=== PATIENT | male | born 1940 | race Caucasian/White ===

== ENCOUNTER → 2018-10-14 16:56 | Outpatient (CLI) | payer SELFPAY | PROVIDERS: Referring Provider Urology; Visit Provider Urology | DX: R30.0 Dysuria (principal); R82.90 Unspecified abnormal findings in urine | CPT/HCPCS: 87077; 87086; 87088; 87186 ==

== ENCOUNTER 2019-09-23 08:38 | Outpatient (CLI) | payer SELFPAY, OTHER ==
--- NOTE | 2019-09-09 03:30 | HP_ITS ---
HPI HPI History of Present Illness Surgical H&P: Yes Details: Patient is an 79-year-old dailey, referred to us for worsening dyspnea on exertion and anginal-like chest pain. He underwent a 2D echo with Doppler at [facility] on 09/08/2019 which showed mild concentric LVH, LVEF of 30 to 35%, moderate left atrial enlargement, moderate mitral regurgitation, severely calcified aorta with severe aortic stenosis and trivial aortic insufficiency. Estimated RVSP of 44mmHg. Peak and mean gradient across the aortic valve was 73/50 mmHg respectively given an estimated aortic valve area of 0.66 cm?. Previous to this the patient had an echocardiogram on 11/28/2018 which showed an EF of 50%, and a peak/mean gradient of 60/37 mmHg given an estimated aortic valve area of 0.8 cm? and RVSP of 15 mmHg. Patient has never had a cardiac catheterization. Patient was referred for evaluation of aortic valve replacement and/or mitral regurgitation repair. EKG dated 09/09/2019 shows normal sinus rhythm, normal axis, right bundle branch block, PVC, no evidence of previous myocardial infarction. In addition the patient has a history of prostate cancer with his most recent PSA dated 03/05/2019 of 33.6. 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 He has no associated exertional anginal symptoms. He denies any lower extremity edema. 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 He does have a younger brother who has coronary disease and has had bypass surgery and stents. In our office today his blood pressure is 120/60, and pulse is 76 and regular. Physical exam demonstrates a 3/6 systolic high-pitched ejection murmur best over the upper right sternal border, no diastolic murmurs are noted. Lipids are pending. Intake Vital Signs 09/09/19 Height 5 ft 9 in 09/09/19 Weight: 153 lb 09/09/19 BMI 22.6 09/09/19 BP 120/60 09/09/19 Blood Pressure Location Lt brachial 09/09/19 Position Sitting 09/09/19 Respiration 20 H 09/09/19 Pulse 76 09/09/19 Pulse Source Auscultation Intake Visit Reasons: SOB, CHF [facility] Allergies No Known Allergies Allergy (Verified 09/09/19 15:00) Medications hydrochlorothiazide 25 mg tablet 25 mg PO DAILY 09/03/19 [History Confirmed 09/03/19] tamsulosin 0.4 mg capsule 0.4 mg PO DAILY 09/03/19 [History Confirmed 09/03/19] alprazolam 0.25 mg disintegrating tablet 0.25 mg PO DAILY PRN 09/09/19 [History] aspirin 81 mg tablet,delayed release 81 mg PO DAILY #90 tab 09/09/19 [Rx Confirmed 09/09/19] clopidogrel 75 mg tablet 75 mg PO DAILY #30 tab 09/09/19 [Rx Confirmed 09/09/19] furosemide 40 mg tablet 40 mg PO DAILY 09/09/19 [History Confirmed 09/03/19] [facility] Medical History Pleural effusion on left (Chronic) Shortness of breath (Chronic) Severe aortic stenosis (Acute) Right bundle branch block (Chronic) Premature complex, ventricular (Chronic) Nonrheumatic tricuspid valve regurgitation (Acute) Nonrheumatic mitral valve regurgitation (Acute) Aortic calcification (Chronic) Left ventricular hypertrophy (Acute) Diastolic dysfunction (Acute) Essential hypertension (Chronic) Former smoker (Chronic) History of prostate cancer (Chronic) Social History (Updated 09/09/19 @ 15:[address] Kurtis Enamorado MD) Smoking Status: Former smoker quit date: 07/16/1967 ROS Const Const: Negative for fatigue, weakness, body ache, fever(s), headache(s), chills, frequent falls, night sweats, daytime sleepiness, difficulty sleeping, excessive sweating, weight gain, weight loss, increased appetite, poor appetite, anorexia or other Eyes Eyes: Negative for blind spots, loss of peripheral vision, transient loss of vision, blurry vision, change in vision, double vision, floaters, tunnel vision or other ENT ENT: Negative for headache(s), dizziness, hearing loss, tinnitus, Nosebleed/epistaxis, balance problems, post nasal drip, lip swelling, tongue swelling, bleeding gums, hoarseness, neck pain, dry mouth or other Cardio Chest Pain: No Resp Respiratory: Negative for SOB with activity, SOB at rest, SOB orthopnea\SOB lying down, Coughing up blood/hemoptysis, chest congestion, pain on inspiration, snoring, stridor, wheezing, crackles, paroxysmal nocturnal dyspnea or other GI GI: Negative nausea, vomiting, heartburn, constipation, belching, bloating, cramping, vomiting blood/hematemesis, bright, red blood in stools, black,tarry stools, loose stools, Difficulty Swallowing or other : Negative for hematuria, frequent nighttime urination/ nocturia, erectile dysfunction or abnormal vaginal bleeding Musc Musc: Negative for muscle aches/ myalgia, muscle weakness, joint pain or balance problems Skin Skin: Negative redness, non-healing lesions, rash, unusual bruising, skin ulcer, wounds, jaundice or other Neuro Neuro: Negative for dizziness, lightheadedness, near syncope, syncope, orthostatic symptoms, frequent falls, headache(s), weakness, confusion, memory loss, restless legs, blurry vision, double vision, vertigo, seizures, lack of coordination or other Denzel Hematologic/Lymphatic: Negative for easy bleeding, easy bruising, enlarged lymph nodes or other Endo Endo: Negative for fatigue, cold intolerance, heat intolerance, excessive sweating, flushing, increased thirst/drinking, increased hunger, hair loss, hair growth or other Psych Psych: Negative for anxiety, depression, thoughts of harming anyone, thoughts of harming yourself, visual hallucinations, panic attacks or audible hallucinations Allergy Allergy/Immunology: Negative for throat swelling, Negative for tongue swelling, Negative for hives, Negative for rash, Negative for lip swelling Cardiology Exam Const Appearance: cooperative, healthy appearing and no acute distress Nutritional Appearance: well nourished Orientation: alert, oriented x3 and oriented to person Head Head: normal to inspection, normocephalic and atraumatic Nose: external nose normal Face and Sinus: face symmetric Mouth: oral mucosae normal Eyes General: appearance normal, both eyes and all related structures Eyelids: eyelids normal Conjunctivae: conjunctivae normal Pupils: PERRL and normal by confrontation EOM: EOM intact bilaterally Neck Neck: normal visual inspection and full ROM Carotids: normal carotid upstroke Chest Chest inspection: normal inspection of the chest Auscultation: Bilateral: Clear to Auscultation Cardio Palpation: normal PMI Rate: regular rate Rhythm: regular rhythm Heart sounds: S2 normal Murmur: Grade 2/6, high pitched and crescendo-decrescendo GI GI: normal to inspection, no hepatosplenomegaly and bowel sounds present Neuro General: alert, awake, oriented x3, CN's II-XI intact bilaterally and moves all extremities Skin Skin: no rashes or lesions noted Extremities Pulses: Normal: Right Femoral Pulse, Left Femoral Pulse, Right Dorsalis Pedis Pulse, Left Dorsalis Pedis Pulse, Right Posterior Tibial Pulse, Left Posterior Tibial Pulse, Right Radial Pulse, Left Radial Pulse Lower Extremity Edema: None: Bilateral Psych Psychological: normal affect Assessment & Plan 1. Severe aortic stenosis I35.0 Per echo done 11/13/2018 @ [facility] Plan 1. Severe aortic stenosis: The patient has critical aortic stenosis with an estimated aortic valve area of less than 1 cm? with a peak/mean gradient of 73/50 mmHg superimposed on deteriorating LV function and worsening RVSP. I believe the patient requires at the very least aortic valve replacement either by open resection or TAVR, as well as the possibility of mitral valve repair. I recommended the patient undergo a transesophageal echocardiogram to evaluate his aortic valve, LV function, and mitral regurgitation. At the conclusion of this he will undergo a left and right heart catheterization to determine if he has any concomitant coronary occlusive disease and to get an accurate designation of his pulmonary pressures. If the patient is a surgical candidate he will require bilateral carotid ultrasounds prior to his procedure. There is/benefits of the procedure were thoroughly explained the patient and his son, including specific attention to lack of onsite surgical backup, and the patient is agreed to proceed. In addition he will undergo fasting lipid profile to complete his cardiac picture. I advised the patient not to do any work until we have fully evaluated his aortic valve. The patient may proceed with hormone injections for his diagnosis of his prostate cancer prior to his aortic valve replacement. 2. Thank you very much for the opportunity to participate in the cardiac care of your patient. 3. Patient will return in 4 months time. This note was generated using a voice recognition system and there may be incorrect words, spelling or punctuation that were not noted when reviewing the office note prior to saving. Orders Orders: Left & Right Heart Cath Today Liver Profile 09/03/19 Echo Transesophageal (MORIS) Today Plan Detail Other Orders Orders: 12 Lead EKG performed by B[facility] Today I45.10, I49.3, R06.02 Left & Right Heart Cath Today I10, I34.0, I36.1, I45.10, I49.3, I51.7, I51.89, I70.0, J90, R06.02 Lipid Profile 09/03/19 I70.0 Liver Profile 09/03/19 Z85.46 Echo Transesophageal ([facility]) Today I34.0, R06.02 Other Medications New: aspirin (Adult Aspirin Regimen) 81 mg PO DAILY 90 tabs 3RF clopidogrel (Plavix) 75 mg PO DAILY 30 tabs 3RF Follow Up +4M (Fei or ZEV) Coding Level of Care Code Off vis,new,level 4 Diagnoses Severe aortic stenosis I35.0 Coding Level of Care Code Off vis,new,level 4 Diagnoses Severe aortic stenosis I35.0 Supplemental Info Supplemental Information Diagnostics Electrocardiogram 09/09/19 09/09/19 6250 <Electronically signed by Kurtis Enamorado MD> Date _ Kurtis Enamorado MD
[2019-09-09 14:59] VITALS: BMI 22.6
--- NOTE | 2019-09-09 16:40 | RAD_ITS ---
STUDY: X-RAY CHEST REASON FOR EXAM: Male, 79 years old. HAVING A HEART CATH TECHNIQUE: PA and lateral views of the chest. COMPARISON: None. FINDINGS: There is hyperinflation of the lungs consistent with chronic obstructive lung disease (COPD). Linear scar in the left upper lobe. Small bilateral pleural effusions. Normal size heart. Normal mediastinum and arron. Normal visualized pulmonary arteries. Normal visualized aortic arch and descending thoracic aorta. There is a dextroscoliosis of the thoracic spine. Normal visualized ribs, clavicles, and shoulders. There is no demonstrated abnormality of the visualized soft tissue structures of the upper abdomen. RAD/Chest PA and Lateral IMPRESSION: Emphysema with left upper lobe scarring and small bilateral pleural effusions. Electronically Signed: Noah Roberson MD at 17:10 EST Tel , Service support ,
[2019-09-09 17:09] LABS: Hematocrit 45.7 % (40-54); Hemoglobin 14.9 g/dL (13.0-16.5); Mean Corp Hgb Conc 32.6 g/dL (32-36); Mean Corpuscular Hgb 29.4 pg (27.0-32.0); Mean Corpuscular Volume 90.3 fL (80-94); Mean Platelet Vol. 11.1 fl (6.2-12.0); Platelet Count 144 K/mm3 (150-450); RBC Distribution Width SD 42.5 fl (35.1-43.9); Red Blood Count 5.06 M/mm3 (4.6-6.2); White Blood Count 8.8 K/mm3 (4.4-11.0)
[2019-09-09 17:17] LABS: International Normalized Ratio 1.1; Prothrombin Time (Protime)PT. 13.5 SECONDS (11.7-14.9)
[2019-09-09 17:18] LABS: Partial Thromboplast Time 28.1 Seconds (24.1-36.2)
[2019-09-09 17:54] LABS: AST(SGOT) 25 U/L (15-37); Alanine Aminotransfer ALT/SGPT 33 U/L (16-61); Albumin, Serum 3.6 g/dL (3.2-5.0); Alkaline Phosphatase 161 U/L (45-117); Anion Gap 5 (5-15); BUN 29 mg/dL (7-18); BUN/Creat Ratio 24.8 RATIO (10-20); Bilirubin, Direct 0.21 mg/dL (0.00-0.30); Calcium,Total 8.9 mg/dL (8.5-10.1); Chloride 103 mmol/L (98-107); Creatinine, Serum 1.17 mg/dL (0.70-1.30); EST Glomerular Filtration Rate 64 mL/min (>60); Est Glom Filt Rate - Afr Amer 77 mL/min (>60); Globulin 4.4 g/dL (2.2-4.2); Glucose 102 mg/dL (74-106); Potassium 3.6 mmol/L (3.5-5.1); Sodium Level 139 mmol/L (136-145)
[2019-09-22 09:49] VITALS: BMI 22.6
--- NOTE | 2019-09-23 08:58 | ECHOTEE_ITS ---
Reason For Study: Valve replacement eval Medication MORIS probe 6VT-D (SN [id number]) passed with minimal difficulty. No complications were noted. [id number] gargled and swallowed. Cetacaine Topical Ch[place]is given X2 orally. Versed 2 mg given slow IVP. Fentanyl 25 mcg given slow IVP. Performed a rapid injection of agitated mix of 9 cc saline and 1cc air to assess for atrial septal defect. Left Ventricle Severely dilated left ventricle. The estimated ejection fraction is 20-25 %. There is severe global hypokinesis of the left ventricle. Right Ventricle Moderately dilated right ventricle. The right ventricular wall motion is normal. Atria Normal atrial septum. Bubble contrast study negative for right to left interatrial shunt. The left atrium is moderately enlarged. No thrombus is detected in the left atrial appendage. Normal right atrium. Mitral Valve The mitral valve is structurally normal. No prolapse or stenosis seen. Tricuspid Valve Normal tricuspid valve. Unable to estimate RV systolic pressure due to insufficient tricuspid regurgitant envelope. Aortic Valve Trisinus/trileaflet aortic valve. Severe focal aortic valve thickening. Severe focal aortic valve calcification. Severe restriction of the aortic valve. Severe aortic stenosis. Peak aortic valve gradient 73 mmHg. Trivial aortic valve insufficiency. Pulmonic Valve Normal pulmonic valve. Vessels Normal aortic root. Normal arch. The pulmonary artery is normal size. Normal pulmonary veins. Interpretation Summary Severely dilated left ventricle. The estimated ejection fraction is 20-25 %. There is severe global hypokinesis of the left ventricle. Moderately dilated right ventricle. Bubble contrast study negative for right to left interatrial shunt. The left atrium is moderately enlarged. No thrombus is detected in the left atrial appendage. Unable to estimate RV systolic pressure due to insufficient tricuspid regurgitant envelope. Trivial aortic valve insufficiency. Severe aortic stenosis. Peak aortic valve gradient 73 mmHg. Severe restriction of the aortic valve. Ordering Physician: Kurtis Enamorado Referring Physician: Keyla Pradhan Performed By: Jeff Wise RCS
--- NOTE | 2019-09-23 09:55 | PCM.HP.BLA ---
Problem List (1) Severe aortic stenosis Status: Acute Comment: Per echo done 11/13/2018 @ [facility] (2) Aortic calcification Status: Chronic Comment: per echo 11/28/18 done @ [facility] (3) Essential hypertension Status: Chronic History and Physical Date of Admission: 09/23/19 [facility] Medical Records Department [address] [place] [address] History and Physical 09/09/19 0330 MR#: [id number] Acct: [id number] Name: OLIVIA GEORGES Rep #: [id number] : 1940 79 From: Kurtis Enamorado MD PCP: Keyla Pradhan MD Status: PRE CLI Location: [facility] HPI HPI History of Present Illness Surgical H&P: Yes Details: Patient is an 79-year-old dailey, referred to us for worsening dyspnea on exertion and anginal-like chest pain. He underwent a 2D echo with Doppler at [facility] on 09/08/2019 which showed mild concentric LVH, LVEF of 30 to 35%, moderate left atrial enlargement, moderate mitral regurgitation, severely calcified aorta with severe aortic stenosis and trivial aortic insufficiency. Estimated RVSP of 44mmHg. Peak and mean gradient across the aortic valve was 73/50 mmHg respectively given an estimated aortic valve area of 0.66 cm?. Previous to this the patient had an echocardiogram on 11/28/2018 which showed an EF of 50%, and a peak/mean gradient of 60/37 mmHg given an estimated aortic valve area of 0.8 cm? and RVSP of 15 mmHg. Patient has never had a cardiac catheterization. Patient was referred for evaluation of aortic valve replacement and/or mitral regurgitation repair. EKG dated 09/09/2019 shows normal sinus rhythm, normal axis, right bundle branch block, PVC, no evidence of previous myocardial infarction. In addition the patient has a history of prostate cancer with his most recent PSA dated 03/05/2019 of 33.6. 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 He has no associated exertional anginal symptoms. He denies any lower extremity edema. 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 He does have a younger brother who has coronary disease and has had bypass surgery and stents. In our office today his blood pressure is 120/60, and pulse is 76 and regular. Physical exam demonstrates a 3/6 systolic high-pitched ejection murmur best over the upper right sternal border, no diastolic murmurs are noted. Lipids are pending. Intake Vital Signs 09/09/19 Height 5 ft 9 in 09/09/19 Weight: 153 lb 09/09/19 BMI 22.6 09/09/19 BP 120/60 09/09/19 Blood Pressure Location Lt brachial 09/09/19 Position Sitting 09/09/19 Respiration 20 H 09/09/19 Pulse 76 09/09/19 Pulse Source Auscultation Intake Visit Reasons: SOB, CHF (DR RONAN CHURCHILL - [facility]) Allergies No Known Allergies Allergy (Verified 09/09/19 15:00) Medications hydrochlorothiazide 25 mg tablet 25 mg PO DAILY 09/03/19 [History Confirmed 09/03/19] tamsulosin 0.4 mg capsule 0.4 mg PO DAILY 09/03/19 [History Confirmed 09/03/19] alprazolam 0.25 mg disintegrating tablet 0.25 mg PO DAILY PRN 09/09/19 [History] aspirin 81 mg tablet,delayed release 81 mg PO DAILY #90 tab 09/09/19 [Rx Confirmed 09/09/19] clopidogrel 75 mg tablet 75 mg PO DAILY #30 tab 09/09/19 [Rx Confirmed 09/09/19] furosemide 40 mg tablet 40 mg PO DAILY 09/09/19 [History Confirmed 09/03/19] [facility] Medical History Pleural effusion on left (Chronic) Shortness of breath (Chronic) Severe aortic stenosis (Acute) Right bundle branch block (Chronic) Premature complex, ventricular (Chronic) Nonrheumatic tricuspid valve regurgitation (Acute) Nonrheumatic mitral valve regurgitation (Acute) Aortic calcification (Chronic) Left ventricular hypertrophy (Acute) Diastolic dysfunction (Acute) Essential hypertension (Chronic) Former smoker (Chronic) History of prostate cancer (Chronic) Social History (Updated 09/09/19 @ 15:[address] Kurtis Enamorado MD) Smoking Status: Former smoker quit date: 07/16/1967 ROS Const Const: Negative for fatigue, weakness, body ache, fever(s), headache(s), chills, frequent falls, night sweats, daytime sleepiness, difficulty sleeping, excessive sweating, weight gain, weight loss, increased appetite, poor appetite, anorexia or other Eyes Eyes: Negative for blind spots, loss of peripheral vision, transient loss of vision, blurry vision, change in vision, double vision, floaters, tunnel vision or other ENT ENT: Negative for headache(s), dizziness, hearing loss, tinnitus, Nosebleed/epistaxis, balance problems, post nasal drip, lip swelling, tongue swelling, bleeding gums, hoarseness, neck pain, dry mouth or other Cardio Chest Pain: No Resp Respiratory: Negative for SOB with activity, SOB at rest, SOB orthopnea\SOB lying down, Coughing up blood/hemoptysis, chest congestion, pain on inspiration, snoring, stridor, wheezing, crackles, paroxysmal nocturnal dyspnea or other GI GI: Negative nausea, vomiting, heartburn, constipation, belching, bloating, cramping, vomiting blood/hematemesis, bright, red blood in stools, black,tarry stools, loose stools, Difficulty Swallowing or other : Negative for hematuria, frequent nighttime urination/ nocturia, erectile dysfunction or abnormal vaginal bleeding Musc Musc: Negative for muscle aches/ myalgia, muscle weakness, joint pain or balance problems Skin Skin: Negative redness, non-healing lesions, rash, unusual bruising, skin ulcer, wounds, jaundice or other Neuro Neuro: Negative for dizziness, lightheadedness, near syncope, syncope, orthostatic symptoms, frequent falls, headache(s), weakness, confusion, memory loss, restless legs, blurry vision, double vision, vertigo, seizures, lack of coordination or other Denzel Hematologic/Lymphatic: Negative for easy bleeding, easy bruising, enlarged lymph nodes or other Endo Endo: Negative for fatigue, cold intolerance, heat intolerance, excessive sweating, flushing, increased thirst/drinking, increased hunger, hair loss, hair growth or other Psych Psych: Negative for anxiety, depression, thoughts of harming anyone, thoughts of harming yourself, visual hallucinations, panic attacks or audible hallucinations Allergy Allergy/Immunology: Negative for throat swelling, Negative for tongue swelling, Negative for hives, Negative for rash, Negative for lip swelling Cardiology Exam Const Appearance: cooperative, healthy appearing and no acute distress Nutritional Appearance: well nourished Orientation: alert, oriented x3 and oriented to person Head Head: normal to inspection, normocephalic and atraumatic Nose: external nose normal Face and Sinus: face symmetric Mouth: oral mucosae normal Eyes General: appearance normal, both eyes and all related structures Eyelids: eyelids normal Conjunctivae: conjunctivae normal Pupils: PERRL and normal by confrontation EOM: EOM intact bilaterally Neck Neck: normal visual inspection and full ROM Carotids: normal carotid upstroke Chest Chest inspection: normal inspection of the chest Auscultation: Bilateral: Clear to Auscultation Cardio Palpation: normal PMI Rate: regular rate Rhythm: regular rhythm Heart sounds: S2 normal Murmur: Grade 2/6, high pitched and crescendo-decrescendo GI GI: normal to inspection, no hepatosplenomegaly and bowel sounds present Neuro General: alert, awake, oriented x3, CN's II-XI intact bilaterally and moves all extremities Skin Skin: no rashes or lesions noted Extremities Pulses: Normal: Right Femoral Pulse, Left Femoral Pulse, Right Dorsalis Pedis Pulse, Left Dorsalis Pedis Pulse, Right Posterior Tibial Pulse, Left Posterior Tibial Pulse, Right Radial Pulse, Left Radial Pulse Lower Extremity Edema: None: Bilateral Psych Psychological: normal affect Assessment & Plan 1. Severe aortic stenosis I35.0 Per echo done 11/13/2018 @ [facility] Plan 1. Severe aortic stenosis: The patient has critical aortic stenosis with an estimated aortic valve area of less than 1 cm? with a peak/mean gradient of 73/50 mmHg superimposed on deteriorating LV function and worsening RVSP. I believe the patient requires at the very least aortic valve replacement either by open resection or TAVR, as well as the possibility of mitral valve repair. I recommended the patient undergo a transesophageal echocardiogram to evaluate his aortic valve, LV function, and mitral regurgitation. At the conclusion of this he will undergo a left and right heart catheterization to determine if he has any concomitant coronary occlusive disease and to get an accurate designation of his pulmonary pressures. If the patient is a surgical candidate he will require bilateral carotid ultrasounds prior to his procedure. There is/benefits of the procedure were thoroughly explained the patient and his son, including specific attention to lack of onsite surgical backup, and the patient is agreed to proceed. In addition he will undergo fasting lipid profile to complete his cardiac picture. I advised the patient not to do any work until we have fully evaluated his aortic valve. The patient may proceed with hormone injections for his diagnosis of his prostate cancer prior to his aortic valve replacement. 2. Thank you very much for the opportunity to participate in the cardiac care of your patient. 3. Patient will return in 4 months time. This note was generated using a voice recognition system and there may be incorrect words, spelling or punctuation that were not noted when reviewing the office note prior to saving. Orders Orders: Left & Right Heart Cath Today Liver Profile 09/03/19 Echo Transesophageal ([facility]) Today Plan Detail Other Orders Orders: 12 Lead EKG performed by [facility] Today I45.10, I49.3, R06.02 Left & Right Heart Cath Today I10, I34.0, I36.1, I45.10, I49.3, I51.7, I51.89, I70.0, J90, R06.02 Lipid Profile 09/03/19 I70.0 Liver Profile 09/03/19 Z85.46 Echo Transesophageal ([facility]) Today I34.0, R06.02 Other Medications New: aspirin (Adult Aspirin Regimen) 81 mg PO DAILY 90 tabs 3RF clopidogrel (Plavix) 75 mg PO DAILY 30 tabs 3RF Follow Up +4M (Fei or ZEV) Coding Level of Care Code Off vis,new,level 4 Diagnoses Severe aortic stenosis I35.0 Coding Level of Care Code Off vis,new,level 4 Diagnoses Severe aortic stenosis I35.0 Supplemental Info Supplemental Information Diagnostics Electrocardiogram 09/09/19 09/09/19 5970 <Electronically signed by Kurtis Enamorado MD> Date Kurtis Enamorado MD Interventional cardiology addendum: The patient underwent transesophageal echocardiogram immediately prior to his left heart catheterization which demonstrated severe calcification and severe aortic stenosis, mild mitral regurgitation, trivial tricuspid regurgitation, dilated left ventricle with overall ejection fraction approximately 25 to 30%. The patient will now proceed with right and left heart catheterization to identify his coronary anatomy and measure his pulmonary pressures in anticipation of either TAVR or open aortic valvular replacement with concomitant bypass surgery. The risk/benefits of the cardiac catheterization procedure were thoroughly explained to the patient prior to his transesophageal echocardiogram, including specific attention to lack of onsite surgical backup, and informed consent was obtained. Left and right her catheterization to follow.
--- NOTE | 2019-09-23 11:09 | CL.D_ITS ---
Patient Name: OLIVIA GEORGES Study Date: 09/23/2019 Performing: Kurtis Enamorado MD Ht: 68.89 inches 175 cm : 1940 Wt: 152.12 lbs 69 kg Age: 79 Gender: male BSA: 1.84 PROCEDURE(S) PERFORMED RR46-DJN/LHC/COR/LV CLINICAL PROFILE AND INDICATIONS Indications: Suspected CAD, Valvular Disease, LV Dysfunction Heart Failure: NYHA Class: 2, Newly Diagnosed: No Stress/Imaging Stress/Image Study Performed: No Angina Classification Anginal Classification w/in 2 Weeks: Anginal Equivalent Dyspnea CAD Presentations: No Sxs, no angina. 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 Non obstructive coronary arteries Aortic Valve Stenosis- Severe The patient has pulmonary hypertension which is moderate. RECOMMENDATIONS Management as per referring Immunohematologist Surgery consult for coronary revascularization Surgery consult for Valve Replacement surgery DESCRIPTION OF PROCEDURE The patient arrived to the procedure lab. The risks and benefits of the procedure as well as a full d escription of our services here and current unavailability of surgical backup were fully explained to the patient and/or their significant other prior to the catheterization. The Timeout was completed, verifying the correct patient and procedure. The patient's procedural site was prepped and draped in the usual fashion. Local anesthetic was given subcutaneously to right groin region with Lidocaine 2%. Using a modified Seldinger technique, arterial access was obtained via the right femoral artery, a 4 Fr sheath was inserted Venous access was obtained via the left femoral vein, a 7Fr sheath was inserte d. A 7Fr thermal dilution catheter was inserted and right heart pressures were recorded, it was then advanced to PA position for cardiac outputs. O2 saturations were then obtained. Thermal dilution card iac outputs were then recorded. The Thermal dilution catheter was then removed. Left Ventriculography was performed in HARKINS projection using a 4 Fr. Pigtail catheter. LV to AO pullback pr essures were then recorded. Left Coronary Artery selective angiography was performed in multiple view s using a 4 Fr. JL5 catheter. Right Coronary Artery selective angiography was then performed in multi ple views using a 4 Fr. 3DRC catheter.The arterial sheath was left in to be pulled in the holding are a. The venous sheath was then left in to be pulled in the holding area. The arterial sheath was pulle d and manual compression applied until hemostasis is achieved.. The venous sheath was then pulled and manual compression applied until hemostasis achieved CORONARY ANGIOGRAPHY DOMINANCE: Right Dominant LEFT HEART ASSESSMENT Left Ventricular Ejection Fraction: by LV Gram 20-25 % Global Hypokinesis - Severe Depressed Left Ventricular systolic function LVEDP: 25 mmHg Elevated Left Ventricular End Diastolic Pressure RIGHT HEART ASSESSMENT Thermal CO: 4.96 Thermal CI: 2.7 Richard CO: 4.16 Richard CI: 2.26 PW: 16 PA: 45/17 29 RV: 45/-2 4 RA: 01/14 1 PVR: 210 SVR: 1097 Aortic Valve Area: 0.97 Aortic Valve Index: 0.53 Aortic Valve Mean Gradient: 38.9 Mitral Valve Area: 2.10 Mitral Valve index: 1.14 Mitral Valve Mean Gradient: 14.3 Right Heart pressures - elevated Pulmonary Hypertension Mild to Moderate LEFT MAIN: Angiographically normal LEFT ANTERIOR DESCENDING ARTERY: PROX LAD: Non-obstructive, Mild luminal irregularities less than 30% MID LAD: Moderate luminal irregularities up to 50%, Moderate calcification DIAGONAL 2: Proximal - 30 % Stenosis CIRCUMFLEX ARTERY: MID CIRC: 75 % Stenosis RIGHT CORONARY ARTERY: MID RCA: 75 % Stenosis, Mild calcification VALVE FINDINGS: Aortic Valve Stenosis - severe COMPLICATIONS No Complications PROCEDURE MEDICATIONS SUMMARY OF HEMODYNAMIC DATA Time AIR REST ECG 09:11:04 RA 01/14 (1) SV 10:22:20 RV 45/-2, 4 10:22:33 PA 45/17 (29) PA 10:26:45 PW (16) PV 10:26:58 LV 145/-2, 24 10:30:17 LV 151/-7, 15 10:30:23 LV 145/-2, 25 10:30:41 PW (24) 10:30:41 LV 147/-4, 23 10:30:48 PW (21) 10:30:48 LV 145/-1, 28 10:31:18 PA 48/1 (21) 10:31:18 LV 146/-1, 28 10:31:26 RV 50/1, 4 10:31:26 LV 141/-3, 23 10:31:54 RV 43/0, 5 10:31:54 LV 136/-2, 20 10:33:08 LVp 139/-6, 24 10:33:13 AOp 94/52 (71) 10:33:18 AO 84/57 (69) SA 10:35:35 Valve Area (c P-P/ms Time AIR REST Mitral 2.10 14.3 mn/218 ms 10:30:48 Aortic 0.97 38.9 mn/302 ms45.0 pk/302 ms 10:33:13 Type SV CO (l/m) CI (l/m/ HR Time AIR REST Thermal 72.90 4.96 2.70 68 09:11:04 Richard 61.20 4.16 2.26 68 09:11:04 Label % O2 Pres/Loc Time AIR REST AO 93 PV 10:39:21 PA 64 PA 10:39:26 Signed By Kurtis Enamorado MD On 09/23/2019 11:08:38 AM Kurtis Enamorado MD
[2019-09-23 12:26] LABS: Blood Gas Specimen Type VEN; VBG BASE EXCESS 3 mmol/L (-1.0-3.5); VBG Bicarbonate 27 mmol/L (22-26); VBG Oxygen Content 29 mmol/L (23-33); VBG PO2 32 mmHg (25-40); VBG SO2 64 % (50-70); VBG pCO2 40.1 mmHg (41-51); VBG pH 7.44 (7.32-7.42)
[2019-09-23 12:26] LABS: Blood Gas Specimen Type VEN; VBG BASE EXCESS 3 mmol/L (-1.0-3.5); VBG Bicarbonate 27 mmol/L (22-26); VBG Oxygen Content 28 mmol/L (23-33); VBG PO2 34 mmHg (25-40); VBG SO2 68 % (50-70); VBG pCO2 38.8 mmHg (41-51); VBG pH 7.45 (7.32-7.42)
[2019-09-23 12:26] LABS: Base Excess 2 mmol/L (-2 to +2); Bicarbonate 25.7 mmol/L (22-26); Blood Gas Specimen Type ART; PO2 62 mmHG (75-100); SO2 93 % (95-99); Total Carbon Dioxide 27 mmol/L; pCO2 35.2 mmHg (35-45); pH 7.47 (7.35-7.45)
== END 2019-09-23 15:26 | disposition home or self-care (01) ==
LOC: CVS 08:43
PROVIDERS: PCP Family Medicine; Referring Provider Internal Medicine Cardiovascular Disease; Visit Provider Internal Medicine Cardiovascular Disease
DX: I35.0 Nonrheumatic aortic (valve) stenosis (principal); I34.0 Nonrheumatic mitral (valve) insufficiency; I25.10 Atherosclerotic heart disease of native coronary artery without angina pectoris; R06.02 Shortness of breath; Z85.46 Personal history of malignant neoplasm of prostate
CPT/HCPCS: 36415; 71046; 80048; 80076; 82803; 85027; 85610; 85730; 93312; 93320; 93325; 93460; J7040; Q9967; A4216; C1751; C1769; C1894

== ENCOUNTER → 2020-01-29 09:46 | Outpatient (CLI) | payer OTHER, SELFPAY ==
[2019-09-22 09:49] VITALS: BMI 22.6
== END ==
PROVIDERS: PCP Family Medicine
DX: Z11.59 Encounter for screening for other viral diseases (principal)
CPT/HCPCS: 87635; G2023; U0003

== ENCOUNTER 2023-03-20 18:20 | Emergency (ER) | payer OTHER, SELFPAY ==
[2023-03-20 18:21] VITALS: BP 139/44; PULSE 60; RESP 18; TEMP 35.9; O2SAT 100
[2023-03-20 19:09] VITALS: BP 156/56; PULSE 46; RESP 14; BMI 24.0
--- NOTE | 2023-03-20 19:25 | RAD_ITS ---
INDICATION: weakness EXAMINATION/TECHNIQUE: X-RAY - XR Chest 1 View COMPARISON: 09/09/2019. FINDINGS: Chronic lung changes including linear scar in the left upper lobe.. No definite acute lung findings. Tortuous and calcified thoracic aorta. The heart is mildly enlarged. Aortic valve replacement. No pleural effusion or pneumothorax. Degenerative changes of the thoracic spine. RAD/Chest 1 View (Portable) IMPRESSION: No definite acute lung findings. Chronic lung changes. Electronically Signed: James Yancey MD at 20:03 EDT ,
[2023-03-20 19:34] LABS: Absolute Neutrophil Count 4.8 X10^3/uL (2.0-7.7); Basophil# 0.04 X10^3/uL; Basophil% 0.6 % (0-1); Eosinophil# 0.06 X10^3/uL; Eosinophils% 0.9 % (0-5); Hematocrit 35.5 % (40-54); Hemoglobin 11.1 g/dL (13.0-16.5); Lymphocyte % 19.3 % (19-41); Mean Corp Hgb Conc 31.3 g/dL (32-36); Mean Corpuscular Hgb 26.6 pg (27.0-32.0); Mean Corpuscular Volume 85.1 fL (80-94); Mean Platelet Vol. 10.1 fl (6.2-12.0); Monocyte# 0.49 X10^3/uL; Monocyte% 7.3 % (0-10); NRBC Flagged by Analyzer 0 % (0-5); Neutrophil % 71.5 % (47-70); Platelet Count 194 K/mm3 (150-450); RBC Distribution Width CV 15.5 % (11.6-14.6); RBC Distribution Width SD 47.8 fl (35.1-43.9); Red Blood Count 4.17 M/mm3 (4.6-6.2); White Blood Count 6.7 K/mm3 (4.4-11.0)
--- NOTE | 2023-03-20 19:53 | EX.ED.GENINJ ---
HPI History of Present Illness Chief Complaint: Weakness Narrative Narrative: 82-year-old male presenting with lightheadedness for the last week. States has been dizzy. He denies chest pain, palpitations, shortness of breath except for some dyspnea on exertion. He states he started to walk short distances and has trouble walking down to the well. He states is worse when he bends over. He has not any fevers or chills. No nausea or vomiting. No black or bloody stools noted. Patient states that he had an aortic valve replacement in 2019. He states he has not been following up with anybody for this. States he is on aspirin and Plavix. [facility] Medical History 2-vessel coronary artery disease Aortic calcification Atherosclerosis of coronary artery of [place] heart without angina pectoris Diastolic dysfunction Essential hypertension Former smoker History of prostate cancer Left ventricular hypertrophy Nonrheumatic mitral valve regurgitation Nonrheumatic tricuspid valve regurgitation Pleural effusion on left Premature complex, ventricular Right bundle branch block Severe aortic stenosis Shortness of breath Home Medications hydrochlorothiazide 25 mg tablet 25 mg PO DAILY Has not been taking: taking Lasix instead 09/03/19 [History Last Taken Unknown] tamsulosin 0.4 mg capsule 0.4 mg PO DAILY 09/03/19 [History Last Taken Unknown] alprazolam 0.25 mg disintegrating tablet 0.25 mg PO DAILY PRN Anxiety 09/09/19 [History Last Taken Unknown] aspirin 81 mg tablet,delayed release (Adult Aspirin Regimen) 81 mg PO DAILY #90 tabs 09/09/19 [Rx Last Taken 09/23/19] clopidogrel 75 mg tablet (Plavix) 75 mg PO DAILY #30 tabs 09/09/19 [Rx Last Taken 09/23/19] furosemide 40 mg tablet 40 mg PO DAILY 09/09/19 [History Last Taken Unknown] Allergy/AdvReac Type Severity Reaction Status Date / Time No Known Allergies Allergy Verified 03/20/23 18:24 Surgical History History of right and left heart catheterization (09/23/19) 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) Stented coronary artery (12/29/19) Social History Smoking Status: Former smoker quit date: 07/16/1967 ROS ROS ED Constitutional Constitutional ED: Denies chills, fever(s) or sweats Eyes Eyes: Denies blurry vision or change in vision ENT ENT ED: Denies ear pain or sore throat Cardiovascular Cardiovascular: Denies chest pain, palpitations or racing heartbeat Respiratory/Chest Respiratory/Chest: Reports dyspnea and dyspnea on exertion; Denies cough or sputum Gastrointestinal Gastrointestinal: Denies abdominal pain, constipation, diarrhea, nausea or vomiting Genitourinary Genitourinary ED: Denies dysuria, hematuria or urinary frequency Musculoskeletal Musculoskeletal: Denies arthralgias, myalgias or neck pain Integumentary Denies abscess, Abrasions or rash Neurologic Neurologic: Denies headache(s), paresthesias or weakness Psychiatric Psychiatric: Denies anxiety, depression, suicidal ideation or suicidal thoughts Endocrine Endocrinology: Denies polydipsia or polyuria EXAM Physical Exam Const Vital Signs: 03/20/23 18:21 03/20/23 19:09 03/20/23 19:09 Temperature 96.7 F L Temperature Source Temporal Pulse Rate 60 46 L Respiratory Rate 18 14 Respiratory Effort Normal Respiratory Pattern Normal Blood Pressure 139/44 H 156/56 H Blood Pressure Mean 75 89 Pulse Ox 100 Oxygen Delivery Method Room Air Room Air 03/20/23 19:09 03/20/23 21:58 Temperature Temperature Source Pulse Rate 58 L Respiratory Rate 17 Respiratory Effort Normal Respiratory Pattern Blood Pressure 145/55 H Blood Pressure Mean 85 Pulse Ox Oxygen Delivery Method Positive well nourished General Appearance ED: NAD HEENT atraumatic Eyes PERRL and EOMs intact bilaterally Chest Wall inspection of chest normal Resp normal respiratory effort and clear to auscultation bilaterally Auscultation: Negative for rales, rhonchi or wheezes Cardio regular rhythm GI normal to inspection, nondistended, normoactive bowel sounds Back/Spine normal to inspection Extremity normal to inspection Neuro oriented x3 and CN's II-XII intact bilaterally Sensorium / Orientation: alert Motor Exam: strength 5/5 throughout Skin no rashes or lesions noted, no wounds and No no jaundice MDM MDM MDM Narrative Medical decision making narrative: Patient with lightheadedness for about a week. He denies chest pain or palpitations. He states he does have short of breath on exertion but he is fine when he is resting. He has a history of aortic valve replacement but states he does not follow with anybody for this. Differential includes acute coronary syndrome, CHF, pneumonia, dehydration, electrolyte maladies, anemia. CBC will be obtained to assess white blood cell count, hemoglobin, platelets. CMP to assess for liver function, renal function, electrolytes, glucose. High-sensitivity troponin and EKG to assess for ischemia and dysrhythmia. Chest x-ray to rule out pneumonia. COVID and flu will be obtained as well. CBC does not show any leukocytosis. Hemoglobin is 11.1 with no comparison for the last 3 years. His BUN and creatinine are about the same as they were then. Alk phos is elevated of unknown significance. EKG shows a sinus bradycardia with occasional PVCs at a rate of 48 bpm on my interpretation. Chest x-ray shows no acute process on my interpretation. The radiologist interprets this and agrees. High-sensitivity troponin is 20. Ultimately patient's work-up is negative. I recommended follow-up with his PCP. Return precautions were discussed. Impression: 1. Weakness 2. Dyspnea Lab Data Labs: Laboratory Results - last 24 hr 03/20/23 19:07 WBC 6.7 RBC 4.17 L Hgb 11.1 L Hct 35.5 L MCV 85.1 MCH 26.6 L MCHC 31.3 L RDW Std Deviation 47.8 H RDW Coeff of Brigette 15.5 H Plt Count 194 MPV 10.1 Immature Gran % (Auto) 0.400 Neut % (Auto) 71.5 H Lymph % (Auto) 19.3 [place] % (Auto) 7.3 Eos % (Auto) 0.9 Baso % (Auto) 0.6 Absolute Neuts (auto) 4.8 Absolute Lymphs (auto) 1.30 Nucleated RBC % 0 Sodium 138 Potassium 4.6 Chloride 106 Carbon Dioxide 26.0 Anion Gap 6 BUN 32 H Creatinine 1.13 Estim Creat Clear Calc 48.66 Est GFR (MDRD) Af Amer 79 Est GFR (MDRD) Non-Af 66 BUN/Creatinine Ratio 28.3 H Glucose 101 Calcium 8.9 Total Bilirubin 0.40 AST 22 ALT 20 Alkaline Phosphatase 651 H Troponin I High Sens 20 Total Protein 7.4 Albumin 3.2 Globulin 4.2 Albumin/Globulin Ratio 0.8 L Radiography Diagnostic Testing: Clinical Impression(s) from Imaging Studies Chest X-Ray 03/20/23 19:25 IMPRESSION: No definite acute lung findings. Chronic lung changes. Electronically Signed: James Yancey MD at 20:03 EDT , Discharge Plan Triage Chief Complaint: Weakness Other Complaint: Fall ED Provider: Virgilio Harris Dx/Rx/DC Orders Instructions: ED Dyspnea, ED Weakness (Uncertain Cause) Prescriptions: No Action tamsulosin 0.4 mg capsule 0.4 mg PO DAILY hydrochlorothiazide 25 mg tablet 25 mg PO DAILY alprazolam 0.25 mg disintegrating tablet 0.25 mg tablet,disintegrating 0.25 mg PO DAILY PRN (Reason: Anxiety) furosemide 40 mg tablet 40 mg PO DAILY aspirin [Adult Aspirin Regimen] 81 mg tablet,delayed release (DR/EC) 81 mg PO DAILY Qty: 90 3RF clopidogrel [Plavix] 75 mg tablet 75 mg PO DAILY Qty: 30 3RF Primary Care Provider: Keyla Pradhan Referrals: Keyla Pradhan MD [Primary Care Provider] - Disposition Disposition: Home, Self Care Discharge Date/Time: 03/20/23 22:27
[2023-03-20 19:54] LABS: ALB/GLOB Ratio 0.8 RATIO (0.9-2.4); AST(SGOT) 22 U/L (15-37); Alanine Aminotransfer ALT/SGPT 20 U/L (16-61); Albumin, Serum 3.2 g/dL (3.2-5.0); Alkaline Phosphatase 651 U/L (45-117); Anion Gap 6 (5-15); BUN 32 mg/dL (7-18); BUN/Creat Ratio 28.3 RATIO (10-20); Calcium,Total 8.9 mg/dL (8.5-10.1); Chloride 106 mmol/L (98-107); Creatinine, Serum 1.13 mg/dL (0.70-1.30); EST Glomerular Filtration Rate 66 mL/min (>60); Est Glom Filt Rate - Afr Amer 79 mL/min (>60); Estimated Creatinine Clearance 48.66 ml/min; Globulin 4.2 g/dL (2.2-4.2); Glucose 101 mg/dL (74-106); Potassium 4.6 mmol/L (3.5-5.1); Protein, Total 7.4 g/dL (6.4-8.2); Sodium Level 138 mmol/L (136-145); Troponin-I HS 20 pg/mL (3.0-78.0)
--- NOTE | 2023-03-20 21:51 | EKG12_ITS ---
Test Reason : DIZZY Blood Pressure : / mmHG Vent. Rate : 048 BPM Atrial Rate : 048 BPM P-R Int : 162 ms QRS Dur : 136 ms QT Int : 504 ms P-R-T Axes : 065 085 099 degrees QTc Int : 450 ms sinus rhythm with 2:1 heart block Confirmed by SWEETIE EPPERSON, NANCY ([id number]), pictures editor LASHELL HERNANDEZ ([id number]) on 03/23/2023 12:59:07 PM Referred By: Confirmed By:NANCY PITT MD
[2023-03-20 21:58] VITALS: BP 145/55; PULSE 58; RESP 17
== END 2023-03-20 22:27 | disposition home or self-care (01) ==
PROVIDERS: Emergency Provider Student in an Organized Health Care Education/Training Program; PCP Family Medicine; Visit Provider Student in an Organized Health Care Education/Training Program
DX: R53.1 Weakness (principal); R06.00 Dyspnea, unspecified; I25.10 Atherosclerotic heart disease of native coronary artery without angina pectoris; Z87.891 Personal history of nicotine dependence; Z95.5 Presence of coronary angioplasty implant and graft
CPT/HCPCS: 71045; 80053; 84484; 85025; 87428; 93005; 99284; A4216